=== PATIENT | male | born 1965 | race Caucasian/White ===

== ENCOUNTER → 2016-08-13 | Outpatient (CLI) | payer MEDICARE, OTHER ==
--- NOTE | 2016-08-13 18:17 | CONS ---
DATE OF CONSULTATION: 08/13/2016 CONSULTATION/NEW PATIENT EVALUATION HISTORY OF PRESENT ILLNESS/SLEEP-WAKE EVALUATION: 51-year-old gentleman who been evaluated in the sleep center for possible obstructive sleep apnea/hypopnea syndrome. SLEEP SCHEDULE: Patient usual sleep schedule from around 12:30 a.m. until 7:00 a.m. FALLING ASLEEP: He does have problems falling asleep. He feels too hot in bedroom. He may have pain in his neck and back and ( ) the house. TV in bedroom also. DURING SLEEP: He usually sleeps on the back position. Wakes up from the night several times and after awakening around 3:30 a.m. he has difficulties to fall asleep again, he may have a couple episodes of nocturia. He has positive history of restless legs and cramps and jumps all over his body. He snores. Has witnessed episodes of stopped breathing during sleep. He wakes up gasping for air, mouth significant, sweating of the head and neck. DURING THE DAY/WAKE STATE: In the morning he wakes up tired, has difficulties to pay attention, falling asleep during the day, has problems with memory, irritability, depression, anxiety, sexual dysfunction. [place] Sleepiness Scale significantly increased to 12. PAST MEDICAL HISTORY: Positive for fibromyalgia, hyperlipidemia, tremors, back problem and neck pain. Positive history of some brain lesion and differential diagnoses include multiple sclerosis but that was not confirmed by a lumbar puncture. PAST SURGICAL HISTORY: Surgery for hernia repair. SOCIAL HISTORY: Positive for smoking for about 30 pack-years; quit about 6 years ago. Alcohol consumption at the present time rarely. FAMILY HISTORY: Hypertension, hyperlipidemia, stroke, fibromyalgia, sinus headaches, snoring, headaches, cancer, insomnia, and diabetes, thyroid problems, restless legs. REVIEW OF SYSTEMS: Positive for multiple awakenings from sleep, pain in the neck and back. Sleepiness during the day. No fevers. No double vision. No recent chest pain. No shortness of breath. No abdominal pain. No bleeding episodes. No blood in urine. No seizure episodes. PHYSICAL EXAMINATION: 51-year-old gentleman without distress. VITAL SIGNS: BP 143/78, HR 92, RR 16. Height 5'9", weight 227. BMI 33.5. Neck 18-1/2 inches in circumference. Temperature 97.5. Oxygen saturation at room air 97%. HEENT: PERRLA, EOMI evaluation of oropharynx showed moderately low position of soft palate. Slight restriction of nasal breathing. NECK: Supple. No JVD. Thyroid is not palpable. LUNGS: Clear to percussion and to auscultation. Good air exchange. No wheezing or rhonchi. HEART: S1, S2 regular. No murmurs, gallops or rubs. ABDOMEN: Obese. Soft and nontender. Bowel sounds are present. No organomegaly appreciated. EXTREMITIES: Some pain with the ( ) 1+ ankle edema. Tremor of the hands during finger to nose. MATH COACH: Awake, alert, and oriented x3. Cranial nerves 2 to 7 intact. There is no fasciculation or atrophy noted. No focal deficits observed. IMPRESSION: 1. Snoring, witnessed episodes of stopped breathing during sleep, low position of soft palate. Some restriction of nasal breathing, awakenings from sleep with nocturia, excessive sleepiness. obstructive sleep apnea-hypopnea syndrome. 2. Obesity; body mass index 33.5. 3. Fibromyalgia. 4. Back problems. 5. Neck pain. 6. Hyperlipidemia. 7. History of lesions in the brain. 8. Differential diagnoses includes multiple sclerosis. Some small lesion also could be secondary to sleep apnea. 9. 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 10. Status post hernia repair. 11. 1+ swelling of ankles. PLAN: 1. Polysomnography for evaluation of patient's breathing during sleep. 2. CPAP/BiPAP titration if sleep study confirms obstructive sleep apnea-hypopnea syndrome. 3. Preferable position during sleep on the side. 4. No driving if patient feels any sleepiness. Patient is aware of civil and criminal liability for unsafe driving. 5. I will see patient for follow-up visit to explain results of the testing and following plan. Thank you very much for referring this patient for consultation. Sincerely, George Khan MD, PhD, FAASM. Diplomat of [place] [employer], Sleep Medicine Board by [place] [employer] [place] [employer] Social Worker of [facility] [place]
== END | disposition home or self-care (01) ==
LOC: SLEEP 13:13
PROVIDERS: ATTEND Internal Medicine
DX: G47.33 Obstructive sleep apnea (adult) (pediatric) (principal); E66.9 Obesity, unspecified; Z68.33 Body mass index [BMI] 33.0-33.9, adult; M79.7 Fibromyalgia; M54.2 Cervicalgia; E78.2 Mixed hyperlipidemia; G93.9 Disorder of brain, unspecified; G35 Multiple sclerosis; R25.1 Tremor, unspecified; Z98.890 Other specified postprocedural states; M25.472 Effusion, left ankle; M25.471 Effusion, right ankle; Z87.891 Personal history of nicotine dependence
CPT/HCPCS: 99211

== ENCOUNTER → 2016-12-17 | Outpatient (CLI) | payer MEDICARE, OTHER ==
--- NOTE | 2016-12-17 19:49 | PN ---
DATE OF SERVICE: 12/17/2016 51-year-old gentleman has been followed in the sleep center for treatment of obstructive sleep apnea-hypopnea syndrome. I discussed results of diagnostic sleep study and titration with the patient in detail. He started to use his BiPAP equipment and brought his BiPAP machine with him. I check BiPAP machine usages practically 100 percent of the time, 29 out of 30 nights for more than 4 hours. Average pressure is 18/11 cm of water. Leak is around 18 liters per minute. Patient experiencing significant problem with usage equipment secondary to collection of water in the tube and then in his nose. He is staying very slightly below the level of his head and I believe this is one of the reasons for the problems. Apnea-hypopnea index 19.6 related to central events, 13.0. [place] Sleepiness Scale today is 15. MEDICATIONS: 1. Morphine. 2. Lipitor. 3. [place]. 4. Cymbalta. 5. ( ). 6. Lyrica. 7. [place]. PHYSICAL EXAMINATION: GENERAL: A gentleman without distress. VITAL SIGNS: BP 141/74, HR 85, RR 16. Weight 230.2. Temp 98.1. Oxygen saturation at room air 96%. Oropharynx low position of soft palate. Neck: Supple. No JVD. Thyroid is not palpable. LUNGS: Clear to percussion and to auscultation. Good air exchange. No wheezing or rhonchi. HEART: S1, S2 regular. No murmurs, gallops, or rubs. ABDOMEN: Obese. Soft and nontender. Bowel sounds are present. No organomegaly appreciated. EXTREMITIES: No clubbing or cyanosis. 1+ bilateral ankle edema. SUBSTATION MANAGER: Awake, alert, and oriented x3. Cranial nerves 2 to 7 intact. There is no fasciculation or atrophy noted. No focal deficits observed. IMPRESSION: 1. Complex sleep apnea-hypopnea syndrome with presence of obstructive and central sleep apnea/hypopnea syndrome while on treatment with BiPAP. Patient demonstrated practically 100% compliance with treatment. 2. Obesity. 3. Fibromyalgia. 4. Back problem. 5. Neck pain. 6. Hyperlipidemia. 7. History of brain lesion and possibly secondary to multiple sclerosis. 8. Tremor. 9. Status post hernia repair. 10. Swelling of ankle. PLAN: 1. Patient will put machine lower than the level of his head at least two fists. 2. I adjusted, humidity level down to 1. 3. Temperature in the tube we will keep at 74 Fahrenheit. 4. Pressor support, I changed to 4. 5. Continue to use BiPAP equipment every night. 6. Chin strap. 7. Patient will use his BiPAP with a nasal pillow mask. 8. I will see the patient for follow-up visit in 6 weeks if he will continue to have central abnormalities of respiration, we may need to proceed to titration with BiPAP on ST mode. Thank you very much for allowing me to participate in the management of your patient. Sincerely, George Khan MD, PhD, FAASM. Diplomat of [place] [employer], Sleep Medicine Board by [employer] Laborer/[place] [facility] [place]
== END ==
LOC: SLEEP 14:08
PROVIDERS: ATTEND Internal Medicine
DX: G47.33 Obstructive sleep apnea (adult) (pediatric) (principal); E66.9 Obesity, unspecified; E78.5 Hyperlipidemia, unspecified; R25.1 Tremor, unspecified; M79.1 Myalgia; Z98.890 Other specified postprocedural states; Z79.891 Long term (current) use of opiate analgesic; Z79.899 Other long term (current) drug therapy

== ENCOUNTER → 2017-02-11 | Outpatient (CLI) | payer MEDICARE, OTHER ==
--- NOTE | 2017-02-12 08:33 | PCN ---
DATE OF SERVICE: 02/11/2017 A 51-year-old gentleman who has been followed in the Sleep Center for treatment of obstructive sleep apnea-hypopnea syndrome. Patient continued to use his PAP equipment but continues to have some problem with the humidity. Still there is a lot of water in his full face mask. At the same time there is not much water in the tube. He continues to wake up from sleep mostly by my understanding secondary to condensation of water in the mask. [place] sleepiness scale today is 10. I checked patient unit. He demonstrated 100% compliance with the usage of the machine at the present time. He is using it 30 out of 30 nights. His average usage is 6.1 hours. Pressure after medical regimen, minimal expiratory pressure of 5, maximal inspiratory pressure 20. With this regimen, pressure is 13.7 to 10.3. Leak is 13 L per minute which is acceptable. Apnea-hypopnea index 12.3 with central apnea index 2.5. MEDICATIONS: Morphine, Lipitor, [place], Cymbalta, Lyrica. During physical exam, a 51-year-old gentleman without distress. BP 150/84, HR 104, RR 16, height 5, 9, weight 235, BMI 34.7, temperature is 98.0 , oxygen saturation of 97%. OROPHARYNX: Low position of soft palate. NECK: Supple, No JVD. Thyroid is not palpable. LUNGS: Clear to percussion and to auscultation. Good air exchange. No wheezing or rhonchi. HEART: S1, s2 regular. No murmurs, gallops or rubs. ABDOMEN: Soft and nontender. Bowel sounds are present. No organomegaly appreciated. EXTREMITIES: No clubbing or cyanosis. SAP PP CONSULTANT: Awake, alert, and oriented x3. Cranial nerves 2 to 7 intact. There is no fasciculation or atrophy noted. No focal deficits observed. IMPRESSION: 1. Complex sleep apnea-hypopnea syndrome. Patient demonstrated 100% compliance with treatment, still has some problem related to humidity. Has some episodes of snoring while he is using CPAP. 2. Obesity. 3. Fibromyalgia. 4. Back problem. 5. Neck pain. 6. Hyperlipidemia. 7. History of brain lesion, possibly secondary to multiple sclerosis. 8. History of tremor. 9. Status post hernia repair. PLAN: 1. I increased minimal expiratory pressure to 8. 2. I increased maximal inspiratory pressure to 21. 3. I decreased humidity level to 1, it was at 4. 4. Patient should continue to use equipment every night for the whole night. 5. Losing weight. 6. Sleep hygiene with regular tie in bed for at least 8 hours. 7. No driving if feeling any sleepiness. Thank you very much for allowing me to participate in the management of your patient. Sincerely, George Khan MD, PhD, FAASM. Diplomat of [place] [employer], Sleep Medicine Board by [place] [employer] [employer] Long Lines Operator [facility] [place] [facility] [place] [facility]
== END | disposition home or self-care (01) ==
LOC: SLEEP 14:26
PROVIDERS: ATTEND Internal Medicine
DX: G47.33 Obstructive sleep apnea (adult) (pediatric) (principal); E66.9 Obesity, unspecified; M79.7 Fibromyalgia; M54.9 Dorsalgia, unspecified; E78.5 Hyperlipidemia, unspecified; Z79.899 Other long term (current) drug therapy; Z79.891 Long term (current) use of opiate analgesic

== ENCOUNTER → 2017-04-01 | Outpatient (CLI) | payer MEDICARE, OTHER ==
--- NOTE | 2017-04-01 17:16 | MR ---
EXAMINATION TYPE: MR brain/lspine wo con DATE OF EXAM: 04/01/2017 COMPARISON: 11/27/2015 HISTORY: white matter change, lumbago Standard multiplanar, multisequence MRI departmental protocol Multiplanar, multisequence images of the brain and lumbar spine without intravenous contrast were acq uired. Diffusion weighted imaging was performed. FINDINGS: Brain: The previously seen largest white matter lesion within the left anterior valdez radiata is no longer visualized on today's examination and may be related to slice selection. Few T2 hyperintense l esions are seen the largest within the right frontal lobe on series 501 image 23 measuring 4 x 3 mm. This is subcortical in location. Only one another focus of T2/FLAIR hyperattenuation is seen within t he left hemisphere on series 501 image 19 measuring 1 to 2 mm. No lesions are seen within the infra t entorium or brainstem. Orbital nerves are unremarkable. There is no evidence of restricted diffusion. Improved appearance from the prior exam. Ventricular sy stem and basilar cisterns are symmetric and unremarkable. Midline structures demonstrate normal morph ology. The craniocervical junction appears within normal limits. The dural venous sinuses are unremar kable. Visualized paranasal sinuses are well aerated. Large intracranial flow voids are maintained. T here is slight rightward nasal septal deviation. 4 mm pineal gland cyst is incidentally noted. Lumbar spine: Bone marrow signal is unremarkable other than multiple T2/T1 hyperintense vertebral bod y hemangiomas and mild degenerative endplate changes. Multilevel mild of disc desiccation is evident. At L1-L2 there is no significant disc disease, neuroforaminal narrowing or spinal canal stenosis. Con us medullaris terminates at L1-L2. At L2-3 there is a small left eccentric broad-based disc bulge without neural foraminal narrowing or spinal canal stenosis. At L3-L4 there is mild disc desiccation and a small broad-based disc bulge without neural foraminal n arrowing or spinal canal stenosis. At L4-L5 there is a broad-based disc bulge creating mild left neural foraminal narrowing. Mild facet arthropathy is also seen, which contributes to the mild left neural foraminal narrowing. Right neurof oramen and spinal canal are patent. At L5-S1 there is a broad-based disc bulge with small annular tear and the left lateral margin withou t discrete herniation. Resultant mild bilateral neural foraminal narrowing is seen in combination wit h mild facet arthropathy. IMPRESSION: 1. No evidence of restricted diffusion to suggest acute territorial infarct. No white matter plaques restricting diffusion to suggest active demyelinating process. 2. Decrease in number of subcentimeter white matter foci, likely related to slice selection. No progr ession of disease. 3. Multilevel degenerative disc disease with annular tear at L5-S1. No focal disc herniation. No spin al canal stenosis. Mild neural foraminal narrowing is seen at L4-L5 and L5-S1.
== END | disposition home or self-care (01) ==
LOC: RADMRIMAIN 13:00
PROVIDERS: ATTEND Nurse Practitioner Acute Care
DX: M99.73 Connective tissue and disc stenosis of intervertebral foramina of lumbar region (principal); M51.37 Other intervertebral disc degeneration, lumbosacral region; Z88.1 Allergy status to other antibiotic agents; R90.89 Other abnormal findings on diagnostic imaging of central nervous system
CPT/HCPCS: 70551; 72148